=== PATIENT | female | born 1995 | race Caucasian/White ===

== ENCOUNTER 2022-03-07 06:12 | Day surgery (SDC) | payer MEDICAID, SELFPAY ==
--- NOTE | 2022-03-06 20:46 | W.PM.DSUDISC ---
Date of service: 03/07/22 Time of Service: 08:03 Discharge Plan Disposition Patient Disposition: Home Condition: Good Discharge Details Reason For Visit: Colonoscopy Attending Provider: Epi Hdz Primary Care Provider: Unknown,Unknown Home Meds and New Rx's Prescriptions: Continued hydrocortisone acetate 25 mg suppository 25 mg KS BID Discontinued bisacodyl [Dulcolax (bisacodyl)] 5 mg tablet,delayed release (DR/EC) 5 mg PO ONCE Qty: 4 0RF Rx Instructions: Take according to provider's instructions for colonoscopy prep. polyethylene glycol 3350 17 gram/dose powder 17 g PO ONCE Qty: 238 0RF Rx Instructions: To be taken as directed by prescriber's office for colonoscopy prep. Discharge Instructions Additional Instructions: 1. If tolerated, consume a soft, low fiber diet for 1-2 days. 2[address] Do not drive, drink alcohol, operate machinery, make critical decisions, or do activities that require coordination or balance for 24 hours. 3. Because air was put into your colon during the procedure, expelling air from your rectum (passing gas or farting) is normal. 4. You may not have a bowel movement for 1-3 days because of the colonoscopy prep. This is normal. 5. Go directly to the emergency room if you notice any of the following: Develop chills (warm to touch), or if you have a thermometer and your temperature is above 101 Difficulty breathing or difficultly swallowing Persistent vomiting Severe abdominal pain, other than gas cramps Severe chest pain Black, tarry stools Any bleeding ? exceeding one tablespoon 6. Call your physician if the site where your intravenous was started becomes red, swollen, painful, and warm to touch. 7. Your physician has reviewed your pre-procedure medications. Please continue to take those medications as previously ordered. You will be given specific information/education regarding any changes to your medications before leaving. 8. Hair-[id number] hemorrhoid creams and suppositories may be helpful for your discomfort. 9. You may notice a small rubber band associated with your bowel movement sometime during the next week or so. This is normal as the hemorrhoid is shed. Activity:: Activity as Tolerated Diet:: As Tolerated Discharge Orders Discharge Orders: Discharge Order (Routine); Ordered 03/06/22 Ordered By: Epi Hdz DS: Diagnosis Discharge Diagnosis (1) Hemorrhoids, internal, with bleeding: Status: Acute Asessment and Plan: Annatasia, we were able to complete your colonoscopy today. Your large intestine is normal. You have 1 internal hemorrhoid that I banded.
--- NOTE | 2022-03-06 20:47 | W.COLOREPORT ---
Date of service: 03/07/22 Time of Service: 07:50 Colonoscopy Report Date of procedure: 03/07/22 Pre-op diagnosis general: Hematochezia Post-op diagnosis procedure note: other (Internal hemorrhoid) Procedure: Colonoscopy with internal hemorrhoid banding Surgeon: Epi Hdz Anesthesia Type: General:No Airway Estimated blood loss (mL): 0 Pathology: none sent Complications: None Disposition: same day Indications: Ambika is a 27-year-old woman with intermittent hematochezia Prep: Miralax/Dulcolax Procedure Start Time: 07:33 Procedure End Time: 07:50 Retraction Time: 9 Findings: Internal hemorrhoid Procedure Description: After the induction of monitored anesthetic care, and with the patient in left lateral decubitus position, I began by performing an external anorectal exam.? Perineum and skin were normal, as was the anal verge.? There was no evidence of external hemorrhoids.? Next, I performed a digital rectal exam.? I did not appreciate any abnormal findings.? Next, I advanced a colonoscope into the rectal vault.? I performed retroflexion.? There is a grade 1 internal hemorrhoid.? Using insufflation, I then advanced the colonoscope beyond the rectal folds and into the sigmoid colon before advancing towards the cecum.? The quality of the prep was excellent.? The scope was noted to be in the cecum by identification of the ileocecal valve and appendiceal orifice.? I then began withdrawing the colonoscope using repeated irrigation as necessary for full evaluation of the colonic mucosa. ?Once the scope was withdrawn to the level of the rectum, great care was taken to examine portions of the rectal folds.? I then withdrew the colonoscope. Next, using a lit anoscope, I examined the hemorrhoid columns. There was 1 internal hemorrhoid in the right posterior position. I performed suction banding in the usual fashion. Finally, the patient was brought to the same-day surgery recovery unit as the anesthetic wore off. ?The findings and instructions were shared with the patient prior to discharge.
[2022-03-07 06:47] VITALS: BP 124/78; PULSE 86; RESP 16; TEMP 36.9; O2SAT 96
--- NOTE | 2022-03-07 06:56 | W.ANESPRE ---
General Info Date of Service Date Performed: 03/07/22 Height: 5 ft 6 in Weight: 66.8 kg Body Mass Index (BMI): 23.8 Surgical Procedure: Operation Date: 03/07/22 07:40 Proposed Procedure Side Surgeon p Colonoscopy Epi Hdz MD s Hemorrhoid Banding Epi Hdz MD Meds Allergies and Home Medications Allergies Allergy/AdvReac Type Severity Reaction Status Date / Time No Known Allergies Allergy Verified 03/07/22 06:46 Home Medication Medication Instructions Recorded hydrocortisone acetate 25 mg 25 mg CA BID 01/30/22 rectal suppository Current Visit Medications: Current Medications Generic Name Dose Route Start Last Admin Trade Name Freq PRN Reason Stop Dose Admin Hyoscyamine Sulfate 0.125 mg 03/06/22 20:49 Hyoscyamine 0.125 Mg Sl/Oral/Chew SL DIRECTED PRN Ringer's Solution 1,000 mls @ 80 mls/hr 03/07/22 06:00 IV 04/05/22 23:59 INFUSION ASHWIN Ringer's Solution 1,000 mls @ 80 mls/hr 03/07/22 06:00 IV 04/05/22 23:59 INFUSION ASHWIN IV Miscellaneous Supplies 1 each 03/07/22 06:00 Iv Access IV 04/05/22 23:59 DIRECTED ASHWIN IV Miscellaneous Supplies 1 each 03/07/22 06:00 Iv Access IV 04/05/22 23:59 DIRECTED ASHWIN Ondansetron HCl 4 mg 03/06/22 20:49 Ondansetron 4 Mg/2 Ml Vial IVP Q4H PRN PRN Nausea / Vomiting Sodium Chloride 0 ml 03/07/22 06:00 Normal Saline Flush 10 Ml Syr IV 04/05/22 23:59 PRN PRN Sodium Chloride 0 ml 03/07/22 06:00 Normal Saline 10 Ml Vial IJ 04/05/22 23:59 DIRECTED PRN Sodium Chloride 0 ml 03/07/22 06:00 Normal Saline Flush 10 Ml Syr IV 04/05/22 23:59 PRN PRN Sodium Chloride 0 ml 03/07/22 06:00 Normal Saline 10 Ml Vial IJ 04/05/22 23:59 DIRECTED PRN Sterile Water 0 ml 03/07/22 06:00 Water,Injection,Sterile 10 Ml Vial IJ 04/05/22 23:59 DIRECTED PRN Sterile Water 0 ml 03/07/22 06:00 Water,Injection,Sterile 10 Ml Vial IJ 04/05/22 23:59 DIRECTED PRN PFSH Active Problems Active Problems: Problem Status Onset Code Finger pain M79.646 Hemorrhoids, internal, with bleeding K64.8 External hemorrhoid, bleeding K64.4 Medical History Medical History Unspecified disorder of synovium and tendon, unspecified hand Medical History Comments:: pt reports runny nose at times, wood heat/going into cold, but no other symptoms. Pt reports occasional marijauna, monthly. Surgical History Surgical History [place] teeth extracted Tobacco Smoking/Tobacco Use Status: Former Tobacco Use Alcohol Alcohol Intake: current Alcohol intake frequency: a few times a month Substance Use Substance use: Occasionally Substance use type: marijuana Details: monthly Vital Signs and Lab Results Vital Signs Most Recent Vital Signs in EMR: Most Recent Vital Signs Temp Pulse Resp BP Pulse Ox 36.9 C 86 16 124/78 96 03/07/22 06:47 03/07/22 06:47 03/07/22 06:47 03/07/22 06:47 03/07/22 06:47 Point of Care Results Point of Care Results: POC- Test(urine) Negative 03/07/22 06:50 Lab Results Blood Type / Crossmatch: No Data to Display Complete Blood Count: No Data to Display Complete Metabolic Panel: No Data to Display Liver Function Panel: No Data to Display Coagulation Panel: No Data to Display Cardiac Panel: No Data to Display Arterial Blood Gas: No Data to Display Venous Blood Gas: No Data to Display Pancreas Panel: No Data to Display Thyroid Panel: No Data to Display Infectious Disease: No Data to Display Blood Cultures: No Data to Display Toxicology Panel: No Data to Display Panel: No Data to Display Anesthesia Assessment and Plan Anesthesia History Personal History: No History of Anesthesia Complications Family History: No Family History of Anesthesia Complications Exercise Tolerance Exercise Tolerance: Metabolic Equivalents>4 Pertinent Negatives Pertinent Negatives: No Symptoms of GERD Cardiac & Pulmonary Exam Cardiac Exam: Normal S1/S2 Heart Sounds Pulmonary Exam: Clear Bilateral Breath Sounds Implantable Cardiac Device Does patient have a Pacemaker or an ICD?: No Airway Exam Known Difficult Airway: No Mallampati Class: 2 Mouth Opening: Normal (> 3cm) Thyromental Distance: Greater than 3 cm Neck Range of Motion: Full ROM Neck Circumference: Normal Teeth Condition: Normal Dentition ASA Classification ASA Score: ASA 1 Emergency Case?: No NPO Status NPO Status: NPO Clears >2 hours, Solids >8 hours Status Status: Negative HCG Anesthesia Plan Resuscitation Status: Full Code Anesthesia Technique: General Anesthesia Airway Planned: Natural Airway Monitors Used: Standard Monitors
[2022-03-07 07:00] VITALS: BMI 23.8
[2022-03-07] MEDS: Lactated Ringers 1,000 ML 80 ML IV (07:10)
[2022-03-07 07:57] VITALS: BP 103/88; PULSE 79; RESP 16; TEMP 36.6; O2SAT 98
--- NOTE | 2022-03-07 08:17 | W.ANESPOSTOP ---
Postoperative Evaluation Date, Time and Location Date Performed: 03/07/22 Time Performed: 08:17 Patient Location: Day Surgery Unit Vital Signs Most Recent Imported Vital Signs: Most Recent Vital Signs Temp Pulse Resp BP Pulse Ox 36.6 C 79 16 103/88 98 03/07/22 07:57 03/07/22 07:57 03/07/22 07:57 03/07/22 07:57 03/07/22 07:57 Pain Score Most Recent Pain Score: Most Recent Pain Score Pain Level 3 03/07/22 07:57 Assessment Mental Status: Awake (Alert & Oriented to Patient Baseline) Airway and Respiratory Function: Patent airway with normal (patient baseline) respiratory exam Cardiovascular Function: Hemodynamically Stable Hydration Status: Adequately Hydrated Nausea & Vomiting: No Nausea or Vomiting Pain: Pt. Denies Any Pain Peripheral Nerve Block: Patient did not receive a nerve block
[2022-03-07 08:25] VITALS: BP 141/90; PULSE 84; RESP 18; TEMP 36.6; O2SAT 99
== END 2022-03-07 08:35 | disposition home or self-care (01) ==
PROVIDERS: Visit Provider Surgery
PROC: 0DJD8ZZ Inspection of Lower Intestinal Tract, Via Natural or Artificial Opening Endoscopic (ICD-10-PCS; CPT 45378; principal; 2022-03-07 07:30)
PROC: (CPT 45398; 2022-03-07 07:30)
DX: K64.8 Other hemorrhoids (principal); K92.1 Melena
CPT/HCPCS: 45398; 81025; J2704

== ENCOUNTER 2022-05-28 15:27 | Outpatient (REF) | payer MEDICAID, SELFPAY ==
[2022-05-30 15:28] LABS: Chlamydia Result Negative (Negative); GC Result Negative (Negative)
== END 2022-05-28 15:28 | disposition home or self-care (01) ==
LOC: LBN 15:27
PROVIDERS: Visit Provider Nurse Practitioner Family
DX: Z11.3 Encounter for screening for infections with a predominantly sexual mode of transmission (principal)
CPT/HCPCS: 87491; 87591

== ENCOUNTER 2022-05-30 15:22 | Outpatient (REF) | payer MEDICAID, SELFPAY ==
[2022-05-30 15:32] LABS: Bilirubin Negative (Negative); Blood Negative (Negative); Clarity Clear (Clear); Glucose Negative (Negative); Ketones Negative (Negative); Leukocyte Esterase Negative (Negative); Nitrite Negative (Negative); Specific Gravity 1.025 (1.005-1.025); Urobilinogen 0.2 mg/dL (Up to 0.2)
== END 2022-05-30 15:23 | disposition home or self-care (01) ==
LOC: NCHCN 15:22
PROVIDERS: Visit Provider Nurse Practitioner Family
DX: R10.2 Pelvic and perineal pain (principal)
CPT/HCPCS: 81003

== ENCOUNTER 2022-07-09 03:02 | Outpatient (CLI) | payer MEDICAID, SELFPAY ==
--- NOTE | 2022-07-09 06:51 | DI.US_ITS ---
Exam(s) US OB 1ST TRIMESTER EXAM: US OB 1ST TRIMESTER CLINICAL HISTORY: Anatomy,H/O PID,Z87.42modified per protocol. TECHNIQUE: First trimester obstetrical ultrasound was performed. COMPARISON: No exams were available for comparison FINDINGS: There is an intrauterine gestational sac which contains a yolk sac and viable pole which exhibi ts heart rate of 157 bpm. [place]-rump length measurement is 16 mm, corresponding to 8 weeks gestational age. There is no evidence of subchorionic hemorrhage. Maternal ovaries: Right ovary measures 2.4 x 2.0 x 2.6 cm and appears unremarkable. Left ovary was not identified on this study. Small amount of fluid noted in the cul-de-sac. IMPRESSION:: Single viable intrauterine gestation which is approximately 8 weeks gestational age by crown rump length measurement, implying SIOBHAN of 02/18/2023. There is no evidence of obvious subchorionic hemorrhage. There is small amount free fluid evident in the cul-de-sac. DATA REPOSITORY:
== END 2022-07-09 03:22 ==
LOC: DI 03:03
PROVIDERS: Visit Provider Obstetrics & Gynecology
DX: Z87.42 Personal history of other diseases of the female genital tract (principal); Z34.91 Encounter for supervision of normal pregnancy, unspecified, first trimester
CPT/HCPCS: 76801

== ENCOUNTER 2022-08-07 02:35 | Outpatient (CLI) | payer MEDICAID, SELFPAY ==
[2022-08-07 16:23] LABS: Panorama Kit Sent via Fed Ex
[2022-08-07 16:29] LABS: Abs Immature Grans 0.04 10^3/uL (0.0-0.06); Absolute Basophil Count 0.04 10^3/uL (0.0-0.2); Absolute Eosinophil Count 0.18 10^3/uL (0.0-0.7); Absolute Lymphocyte Count 1.85 10^3/uL (1.2-3.4); Absolute Monocyte Count 0.67 10^3/uL (0.1-0.8); Absolute Neutrophil Count 5.66 10^3/uL (1.2-6.7); Basophils % 0.5; Eosinophils % 2.1; HCT 34.7 % (36.0-46.0); HGB 11.6 g/dL (11.2-15.7); Immature Grans % 0.5; Lymphocytes % 21.9; MCHC 33.4 % (32.0-36.0); MCV 90 fL (80-95); MPV 9.9 fL (8.0-11.0); Monocytes % 7.9; Neutrophils % 67.1; Platelet Count 234 10^3/uL (130-400); RBC 3.87 10^6/uL (3.93-5.22); RDW 12.9 % (11.7-14.6); RDW-SD 42.5 fL; WBC 8.44 10^3/uL (4.4-10.8)
[2022-08-09 10:55] LABS: Rubella IgG Ab (UVM) Positive (See Note)
[2022-08-09 11:14] LABS: Hepatitis B Surface Ag Negative (Negative)
[2022-08-09 11:39] LABS: Hepatitis C Ab w Rflx HCV PCR Negative (Negative)
[2022-08-09 11:47] LABS: HIV-1/2 Ag & Ab Screen Negative (Negative)
[2022-08-09 12:06] LABS: Varicella IgG Antibody Equivocal (See Note)
[2022-08-11 14:41] LABS: Syphilis IgG w/Reflex Nonreactive (Nonreactive)
[2022-08-19 22:27] LABS: Result Summary NEGATIVE; Specimen WB Whole Blood
== END 2022-08-07 02:36 | disposition home or self-care (01) ==
LOC: LBO 02:35
PROVIDERS: Advanced Practice Midwife; Visit Provider Advanced Practice Midwife
DX: Z34.91 Encounter for supervision of normal pregnancy, unspecified, first trimester (principal); Z3A.12 12 weeks gestation of pregnancy
CPT/HCPCS: 36415; 81220; 81222; 86787; 86803; 86850; 86900; 86901; 87340; 87389; 85025; 86762; 86780

== ENCOUNTER 2022-08-07 16:56 | Outpatient (REF) | payer MEDICAID, SELFPAY ==
--- NOTE | 2022-08-07 15:30 | PAPFT_PTH ---
PATIENT: Ambika Day LOC: [facility] U#:[id number] AGE/SX: 27/F ROOM: RE08/07/[address]: Farideh Padron : 1995 BED: DIS: 08/07/2022 SPEC #: [id number] RECD: 08/07/22 18:09 STATUS: ROLAND REQ #: [id number] KENRICK: 08/07/22 15:[address]: Farideh Padron DEPT: [facility] Cytology RECD BY: Madeleine Urena Tissues: 1 - CX/ENDOCX FOR PAP SMEARS Procedures: PAP THIN PREP/UVM Screening Comments: [id number] (CHLAMYDIA/GC)
[2022-08-07 19:27] LABS: *AMPHETAMINES SCREEN URINE Negative (Negative); *BARBITURATES SCREEN URINE Negative (Negative); *BENZODIAZEPINES SCREEN URINE Negative (Negative); Cannabinoids THC Positive (Negative); Cocaine Screen,Urine Negative (Negative); METHADONE URINE SCREEN Negative (Negative); OPIATES URINE SCREEN Negative (Negative)
[2022-08-07 19:33] LABS: Tricyclic Antidepressants Negative (Negative)
[2022-08-08 14:28] LABS: Chlamydia Result Negative (Negative); GC Result Negative (Negative)
[2022-08-16 14:21] LABS: Buprenorphine Negative ng/mL (Cutoff: 5.0); Norbuprenorphine Negative ng/mL (Cutoff: 2.5)
== END 2022-08-07 16:57 | disposition home or self-care (01) ==
LOC: LBN 16:56
PROVIDERS: Visit Provider Advanced Practice Midwife
DX: Z11.51 Encounter for screening for human papillomavirus (HPV) (principal)
CPT/HCPCS: 80307; 80348; 87491; 87591; 88142; 87086; 87480; 87510; 87660

== ENCOUNTER 2022-08-31 08:01 | Emergency (ER) | payer MEDICAID, SELFPAY ==
[2022-08-31 08:05] VITALS: BP 122/68; PULSE 89; RESP 16; TEMP 37; O2SAT 100
[2022-08-31 08:10] VITALS: RESP 18
[2022-08-31 09:22] VITALS: BP 117/62; PULSE 74; RESP 18; TEMP 36.7; O2SAT 100
--- NOTE | 2022-08-31 09:33 | ED.GENADUL_ITS ---
Discharge Plan Disposition Patient Disposition: Home Condition: Good Discharge Details Clinical Impression: URI (upper respiratory infection), Sinus pain Primary Care Provider: Emily Zazueta ED Provider: Alina Covarrubias Home Meds and New Rx's Prescriptions: New ondansetron 4 mg tablet,disintegrating 4 mg PO Q8H PRN (Reason: nausea and vomiting) Qty: 10 0RF Continued Plus 29 mg iron- 1 mg tablet 1 tab PO DAILY Qty: 90 1RF Discharge Instructions Instructions: Upper Respiratory Infection (ED) Additional Instructions: Your history and exam is concerning for upper respiratory infection, likely viral. Please continue to encourage hydration. You may use tylenol as needed for discomfort or fevers. You have been prescribed zofran to help with nausea and allow you to take your medications and hydrate. Please follow up with your primary care in one week for reevaluation. If you develop difficulty breathing, increased pain, inability to stay hydrated or other new/worsening symptoms, please seek care urgently once again. Referrals: Emily Zazueta MD [Primary Care Provider] - Discharge Data Discharge Date/Time-TO BE ENTERED AT DEPARTURE: 08/31/22 10:43 Medical Decision Making Patient is a 27-year-old female presenting today with chief complaint of congestion, sinus discomfort, sinus headache, sore throat, cough, fevers, nausea, vomiting. She is 15 weeks gestation. States that symptoms began approximately 4 days ago. She states that she is not able to keep down acetaminophen. Denies feeling short of breath or having chest pain. No known sick contacts. On exam, patient appears very anxious but nontoxic. She has moist mucous membranes. She is hemodynamically stable with 100% O2, patient is not tachycardic or hypotensive. Her lungs are clear in all [place]. HEENT exam shows some tenderness over the maxillary sinuses bilaterally, cobblestoning in the posterior oropharynx, normal TMs, no lymphadenopathy. History exam is most consistent with a viral illness. I did discuss holding off on antibiotics as I do not feel that they are warranted at this time. She does sound like she is been having some difficulty with nausea and is having difficulty with staying hydrated although clinically, she does appear well- hydrated at this time. Will give Zofran as well as some acetaminophen as she has not been able to have this yet today. Patient able to keep down APAP after zofran. She is hydrating. Advised on supportive care. dicussed return precautions. Advised f/u in one week for PCP. All of her qeustions and concerns were addressed, she is in agreement with this plan. HPI General Date/Time Provider Initiated Documentation: 08/31/22 08:02 . Limitations to Documentation: no limitations . Information obtained by: patient and RN notes reviewed . History of Present Illness 27 year old F presents to the emergency department with the chief complaint of sinus pain, congestion, cough, fever, sore throat, described as moderate, Quality is described as aching, and is localized to the head and face. Patient started experiencing this day(s) (4) and it has been constant. No relieving factors improve symptom(s), No exacerbating factors reported . Patient notes cough, fever/chills, headaches (sinus pain), loss of appetite, malaise and nausea/vomiting; denies chest pain, diaphoresis, rash and shortness of breath. Patient did receive the following treatments prior to arrival, none Related Data Home Medications Medication Instructions Recorded Confirmed vitamins with calcium 1 tab PO DAILY #90 tabs 06/21/22 08/07/22 no.72-iron 29 mg-folic acid 1 mg tablet ( Plus) ondansetron 4 mg disintegrating 4 mg PO Q8H PRN nausea and 08/31/22 tablet vomiting #10 tabs Previous Rx's Medication Instructions Recorded vitamins with calcium 1 tab PO DAILY #90 tabs 06/21/22 no.72-iron 29 mg-folic acid 1 mg tablet ( Plus) ondansetron 4 mg disintegrating 4 mg PO Q8H PRN nausea and 08/31/22 tablet vomiting #10 tabs Allergies Allergy/AdvReac Type Severity Reaction Status Date / Time No Known Allergies Allergy Verified 08/31/22 08:08 General Stated Complaint: GenMedical DON: 3 Review of Systems Constitutional Constitutional: Reports as per HPI Eyes Eyes: Reports as per HPI, Denies eye discharge and Denies irritation ENT Ears, Nose, Mouth, and Throat: Reports as per HPI Cardiovascular Cardiovascular: Reports as per HPI, Denies chest pain and Denies dyspnea Respiratory Respiratory: Reports as per HPI and Denies dyspnea Gastrointestinal Gastrointestinal: Reports as per HPI, Denies abdominal pain and Denies change in bowel habits Integumentary/Breasts Skin/Breast: Reports as per HPI and Denies rash Neurologic Neurologic: Reports as per HPI PFSH All Active Problems (Updated 08/31/22 @ 10:21 by ANNIE Chandra) URI (upper respiratory infection) (Acute) Sinus pain (Acute) Susceptible to varicella (non-immune), currently (Acute) Marijuana use during (Acute) LGSIL of cervix of undetermined significance (Acute) (Acute) Hemorrhoids, internal, with bleeding (Acute) External hemorrhoid, bleeding (Acute) Medical History (Updated 08/31/22 @ 10:21 by ANNIE Chandra) Finger pain History of PID Unspecified disorder of synovium and tendon, unspecified hand Surgical History [place] teeth extracted Family History Maternal Grandfather Diabetes Father Diabetes Arthritis Daughter Leukemia Paternal Grandfather Suicide Maternal Grandfather Vascular disease Social History (Updated 08/07/22 @ 15:02 by Farideh Padron CNM) Smoking/Tobacco Use Status: Former Tobacco Use Quit Date: 02/10/18 Smoking risk assessment performed?: Yes Alcohol Intake: current Alcohol Intake frequency: a few times a month Drug use: Never Substance use type: does not use Details: monthly Household members: significant other and children Housing: house Number of Children: 2 Do you feel safe at home: Yes Do you feel safe in your relationship?: Yes History History 5 Para 2 Hx # Term Pregnancies 2 Multiple births Hx # Pregnancies Ectopic pregnancies AB induced 2 Hx Number of Living Children 2 AB spontaneous Past Pregnancies Del. 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 Pitocin augmentation Delivery Date: 01/07/16 Last Updated by: Farideh Padron CNM Pitocin augmentation, meconium Exam Const General: cooperative, healthy appearing, comfortable, no acute distress, well developed and well groomed Nutritional Appearance: average body habitus and well nourished Orientation: alert and awake [facility] Head: normal to inspection, normocephalic and atraumatic Ears: hearing grossly normal bilaterally, external ears normal and TM's normal bilaterally General nose exam: external nose normal and nares normal Face and sinus: normal facial exam, face symmetric and sinus tenderness maxill fernando (bilaterally) Mouth: oral mucosae normal, lip normal, tongue normal, oropharynx normal and moist mucous membranes Teeth and gingiva: dentition normal Throat: tonsils normal, uvula midline and posterior oropharynx abnormal cobblestoning Eyes General: appearance normal, both eyes and all related structures Neck Neck: normal visual inspection, full ROM, no lymphadenopathy and no meningeal signs Resp Effort & Inspection: normal respiratory effort, able to speak in complete sentences and no respiratory distress Auscultation: clear to auscultation bilaterally, no rales, no rhonchi and no wheezes Cardio Rate: regular rate Rhythm: regular rhythm Heart Sounds: S1 normal and S2 normal Skin General skin exam: no rashes or lesions noted Neuro General: patient alert and patient awake Cognition: normal cognition Speech: speech normal Gait: normal gait Course Vital Signs Vital signs: Vital Signs Temperature 37.0 C 08/31/22 08:05 Pulse 89 08/31/22 08:05 Respiratory Rate 16 08/31/22 08:05 Blood Pressure 122/68 08/31/22 08:05 Pulse Oximetry 100 08/31/22 08:05 Temperature 36.7 C 08/31/22 09:22 Temperature Source Oral 08/31/22 09:22 Pulse 74 08/31/22 09:22 Respiratory Rate 18 08/31/22 09:22 Respiratory Effort Normal, Non-Labored 08/31/22 08:10 Respiratory Depth Normal 08/31/22 08:10 Respiratory Pattern Normal 08/31/22 08:10 Blood Pressure 117/62 08/31/22 09:22 Blood Pressure Position Sitting 08/31/22 08:05 Pulse Oximetry 100 08/31/22 09:22 Oxygen Delivery Method Room Air 08/31/22 09:22 Oxygen Flow Rate 0 08/31/22 09:22
[2022-08-31] MEDS: Ondansetron O.D.T. 4 MG TABEF PO (09:34)
[2022-08-31] MEDS: Acetaminophen 325 MG TAB 650 MG PO (09:34)
[2022-08-31 10:41] VITALS: BP 119/77; PULSE 67; RESP 18; O2SAT 98
== END 2022-08-31 10:43 | disposition home or self-care (01) ==
PROVIDERS: Emergency Provider Physician Assistant; PCP Family Medicine
DX: O26.892 Other specified pregnancy related conditions, second trimester (principal); R05.9 Cough, unspecified; O21.8 Other vomiting complicating pregnancy; O99.512 Diseases of the respiratory system complicating pregnancy, second trimester; Z20.822 Contact with and (suspected) exposure to COVID-19; Z87.891 Personal history of nicotine dependence; Z3A.15 15 weeks gestation of pregnancy
CPT/HCPCS: 99283; 99282

== ENCOUNTER → 2022-09-27 00:05 | Outpatient (CLI) | payer MEDICAID, SELFPAY ==
--- NOTE | 2022-09-27 06:45 | DI.US_ITS ---
Exam(s) US OB 2-3 TRIMESTER EXAM: US OB 2-3 TRIMESTER CLINICAL HISTORY: ,Z34.90. TECHNIQUE: Transabdominal obstetrical ultrasound was performed. COMPARISON: US US OB 1ST TRIMESTER from 07/09/2022 FINDINGS: There is a single viable intrauterine gestation with cardiac activity identified-145 bpm. Amniotic fluid: There is a normal amount of amniotic fluid. Placental location: The placenta is anterior grade 1,with no evidence of placenta previa.Distance fro m tip of placenta to the internal cervical os is 4 cm. Distance from the margin of the placenta to t he cord insertion is 4.4 cm. ANATOMY: A 3 vessel umbilical cord is seen. A four-chamber cardiac view was obtained. Right and left ventricular outflow tracts were imaged. There are no obvious abnormalities of the spinal column evident. There is no obvious abnormal ity of the anterior abdominal wall. stomach and urinary bladder are identified and there is no evidence of hydronephrosis. No abnormalities of the upper lip region are identified. No evidence of choroid plexus cysts i n the brain. Dating parameters place this at approximately 19 weeks and 4 days gestational age. BPD measures 19 weeks and 5 days HC measures 19 weeks and 5 days AC measures 19 weeks and 6 days FL measures 19 weeks and 1 day. Estimated weight is 301 gm-0 pounds 11 ounces Fetus is at the 30th percentile on the Hadlock scale. IMPRESSION:: Single viable intrauterine gestation which is approximately 19 weeks and 4 days gestati onal age, implying an SIOBHAN of February 17, 2023. There are no obvious anomalies evident on today's study. The placenta is anterior with no evidence of placenta previa. There is a normal amount of amniotic fluid. DATA REPOSITORY:
== END ==
PROVIDERS: PCP Nurse Practitioner Family; Visit Provider Advanced Practice Midwife
DX: Z34.92 Encounter for supervision of normal pregnancy, unspecified, second trimester (principal)
CPT/HCPCS: 76805

== ENCOUNTER 2022-10-22 07:18 | Emergency (ER) | payer MEDICAID, SELFPAY ==
[2022-10-22 07:20] VITALS: BP 111/65; PULSE 80; RESP 15; TEMP 36.5; O2SAT 100
--- NOTE | 2022-10-22 07:40 | W.ED.GENAD ---
Discharge Plan Disposition Patient Disposition: Home Discharge Details Clinical Impression: Laceration of left foot, Primary Care Provider: Aury Carrillo ED Provider: Coco Varela Home Meds and New Rx's Prescriptions: New cephalexin 500 mg tablet 500 mg PO BID Qty: 10 0RF No Action Plus Vitamin-Mineral 27 mg iron- 1 mg tablet 1 tab PO DAILY Qty: 30 5RF Discharge Instructions Instructions: (ED), Crutch Instructions (ED), Laceration (ED) Additional Instructions: 1. You should be contacted by the podiatry office for a follow-up appointment this week. Return here if you develop any increasing pain, redness, fevers, chills, red streaking or any concerns. You can wash the wound with mild soap and water or diluted hydrogen peroxide in a one-to-one solution. 2. Start cephalexin 500 mg every 12 hours for 5 days. We recommend he take a probiotic while on antibiotics. 3. Use the crutches as needed for ambulation. 4. Take Tylenol as needed for pain Discharge Data Discharge Physician: Coco Varela Medical Decision Making This is a 23 and 2-day week female who presents with what she believes is a foreign body of the left foot. After exploration of the wound no foreign body was identified. My plan is to obtain an ultrasound to look for foreign body since she is . The area is slightly erythematous and tender although there is no lymphangitis or inguinal adenopathy. Her tetanus is not up-to-date and we will update her tetanus and give her Keflex. If her ultrasound is negative we will discharge her home with outpatient follow-up with podiatry. We will leave the wound open in case there is partially retained foreign body. I have advised her to take acetaminophen for pain and a probiotic while on cephalexin Differential Diagnosis Differential Diagnosis: Foreign body of the left foot versus puncture wound of the left foot. Medical Records Medical records reviewed: Yes I reviewed the patient's medical records. Imaging Data Radiologic Study: Imaging: Ultrasound (Left foot) Radiologist's impression: No foreign body HPI General Date/Time Provider Initiated Documentation: 10/22/22 07:19. Limitations to Documentation: no limitations. Information obtained by: patient, RN/MD, RN notes reviewed and old records reviewed. History of Present Illness with intensity rated at 2. Quality is described as aching and dull, and is localized to the left and lower extremity (Foot). Patient did receive the following treatments prior to arrival, none HPI Narrative: Patient is a -0-2-2 who is 23 weeks and 2 days by dates whose last tetanus was in 2006. She presents today with pain in the left foot after she was walking barefoot on a barbara and felt a splinter into her foot. She could see an entrance point and almost an exit point. She attempted to remove it for 2 hours at home using alcohol and a razor blade but was unable to remove it and comes in now with pain which is constant and 2 out of 10 in severity at rest. Is described as a soreness. It is aggravated by standing. She did see some fluid that did not appear purulent coming from the distal aspect of the wound. She denies any numbness tingling or loss of function. She does tell me she has been limping. She denies any abdominal pain. She can feel the baby moving. She denies any vaginal bleeding. She denies any allergies. Her previous pregnancies were uncomplicated. She denies any numbness tingling or loss of function. She denies any previous similar or serious injuries to that foot. She does not take any medications for the pain Related Data Home Medications Medication Instructions Recorded Confirmed vitamin no.180-ferrous 1 tab PO DAILY #30 tabs 09/27/22 10/22/22 fumarate 27 mg-folic acid 1 mg tablet ( Plus Vitamin-Mineral) cephalexin 500 mg tablet 500 mg PO BID #10 tabs 10/22/22 Previous Rx's Medication Instructions Recorded vitamin no.180-ferrous 1 tab PO DAILY #30 tabs 09/27/22 fumarate 27 mg-folic acid 1 mg tablet ( Plus Vitamin-Mineral) cephalexin 500 mg tablet 500 mg PO BID #10 tabs 10/22/22 Allergies Allergy/AdvReac Type Severity Reaction Status Date / Time No Known Allergies Allergy Verified 10/22/22 07:28 General Stated Complaint: ForeignBody DON: 4 Review of Systems Narrative: see hpi Musculoskeletal Musculoskeletal: Reports tingling Neurologic Neurologic: Reports as per HPI, Reports sensory deficit, Reports tingling and Reports paresthesias Allergic/Immunologic Comments: No history of immune compromise PFSH All Active Problems (Updated 10/22/22 @ 10:09 by Coco Varela MD) Laceration of left foot (Acute) (Acute) Susceptible to varicella (non-immune), currently (Acute) Marijuana use during (Acute) LGSIL of cervix of undetermined significance (Acute) (Acute) Hemorrhoids, internal, with bleeding (Acute) External hemorrhoid, bleeding (Acute) Medical History Finger pain History of PID Unspecified disorder of synovium and tendon, unspecified hand Surgical History [place] teeth extracted Family History Maternal Grandfather Diabetes Father Diabetes Arthritis Daughter Leukemia Paternal Grandfather Suicide Maternal Grandfather Vascular disease Social History Smoking/Tobacco Use Status: Former Tobacco Use Quit Date: 02/10/18 Smoking risk assessment performed?: Yes Alcohol Intake: current Alcohol Intake frequency: a few times a month Drug use: Never Substance use type: does not use Details: monthly Household members: significant other and children Housing: house Number of Children: 2 Do you feel safe at home: Yes Do you feel safe in your relationship?: Yes History History 5 Para 2 Hx # Term Pregnancies 2 Multiple births 0 Hx # Pregnancies 0 Ectopic pregnancies 0 AB induced 2 Hx Number of Living Children 2 AB spontaneous 0 Past Pregnancies Del. 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 Pitocin augmentation Delivery Date: 01/07/16 Last Updated by: Farideh Padron CNM Pitocin augmentation, meconium Exam Narrative Exam Narrative: Patient is a well-developed well-nourished female alert and oriented in no acute distress. Vital signs are within normal limits. Const General: cooperative, healthy appearing, comfortable, no acute distress, well developed, well groomed and well hydrated Nutritional Appearance: average body habitus and well nourished Orientation: alert, awake and oriented x3 HENMT Head: normal to inspection, normocephalic and atraumatic Ears: hearing grossly normal bilaterally and external ears normal General nose exam: external nose normal, nares normal and no nasal discharge Face and sinus: normal facial exam, sinuses nontender and face symmetric Mouth: oral mucosae normal, lip normal, tongue normal, oropharynx normal, moist mucous membranes and other (Normal phonation. The patient is handling secretions.) Throat: posterior oropharynx normal and uvula midline Eyes General: appearance normal, both eyes and all related structures Eyelids: eyelids normal Conjunctivae: conjunctivae normal Sclera: sclerae normal Cornea: corneas normal Pupils: PERRL EOM: EOM intact bilaterally and No nystagmus Neck Neck: normal visual inspection, full ROM, no lymphadenopathy, no meningeal signs, trachea midline and supple Lymphatic: no lymphadenopathy noted Chest Chest: normal inspection of the chest Resp Effort & Inspection: normal respiratory effort, able to speak in complete sentences, no audible wheezes, no nasal flaring, no respiratory distress, no retractions, no stridor, not tachypneic, no tracheal deviation, no use of accessory muscles, No prolonged expiratory phase and other (Normal inspiratory to expiratory ratio.) Auscultation: clear to auscultation bilaterally, no rales, no rhonchi, no wheezes and no rubs Tactile Fremitus: tactile fremitus absent Cardio Jugular venous pressure: no JVD Palpation: normal PMI Rate: regular rate Rhythm: regular rhythm Heart Sounds: S1 normal, S2 normal, no gallops, no murmurs and no rubs GI Inspection: other (The patient does appear to be gravid in her second trimester) Palpation: soft, no hepatosplenomegaly, no guarding and nontender Percussion: normal to percussion Auscultation: normal bowel sounds General: No CVA tenderness Back/Spine/Pelvis Back: no CVA tenderness and No back tenderness Cervical Spine: normal cervical lordosis, cervical ROM normal, No cervical muscular tenderness, No pain with cervical ROM, No cervical spinal tenderness and No step off deformity Thoracic/Lumbar Spine: thoracic and lumbar spine normal to inspection, No thoracic spinal tenderness and No lumbar spinal tenderness Pelvis: no pain with anterior-posterior compression and no pain with lateral compression Skin General skin exam: turgor normal, no petechiae, no purpura and other (Skin is normal for ethnicity.) Lesions: no lesions Rashes: no rashes Other: Her skin is normal for ethnicity please see below for description of her laceration Neuro General: patient alert, patient awake, patient oriented x3, moves all extremities, no meningeal signs, no focal motor deficits and CN's II-XI intact bilaterally Cranial Nerves: CN's II-XI intact bilaterally, PERRL, accommodation normal, EOM intact bilaterally, no nystagmus, facial strength normal, tongue midline, hearing normal and no nystagmus Cognition: normal cognition Speech: speech normal Gait: normal gait Motor: muscle tone normal throughout and strength 5/5 throughout Sensory Exam: no sensory deficits noted Extrem Other: She is moving all of her extremities normally the left foot on the sole reveals an entrance wound and a small puncture on the lateral aspect of the left foot. The entrance wound goes from just below the fifth toe proximally to 5 cm to the exit wound Psych Appearance: grossly normal Affect: normal affect Attitude: cooperative Thought Process: normal Thought Content: normal Insight: insight good Judgment: judgment good Other: The patient appears to have capacity make medical decisions. Course Vital Signs Vital signs: Vital Signs Temperature 36.5 C 10/22/22 07:20 Pulse 80 10/22/22 07:20 Respiratory Rate 15 10/22/22 07:20 Blood Pressure 111/65 10/22/22 07:20 Pulse Oximetry 100 10/22/22 07:20 Temperature 36.5 C 10/22/22 07:20 Temperature Source Temporal Artery Scan 10/22/22 07:20 Pulse 80 10/22/22 07:20 Respiratory Rate 15 10/22/22 07:20 Respiratory Effort Normal 10/22/22 07:23 Blood Pressure 111/65 10/22/22 07:20 Blood Pressure Position Sitting 10/22/22 07:20 Pulse Oximetry 100 10/22/22 07:20 Oxygen Delivery Method Room Air 10/22/22 07:20 Oxygen Flow Rate 0 10/22/22 07:20 Pain Level 2 10/22/22 07:27 Procedures Other Description: After verbal consent, the wound was prepped and draped in sterile fashion. The wound was anesthetized with plain 1% lidocaine and 0.5% plain bupivacaine. 5 mL was placed along the length of the wound it was reapplied during the procedure with good resulting local anesthesia. The wound was opened from the point of entrance to the exit it was explored and irrigated. No foreign body was identified. A dry sterile dressing was placed and the patient was sent to ultrasound. She tolerated the procedure well
[2022-10-22] MEDS: Bupivacaine 0.5% Pres-Free 30 ML VIAL (08:06)
--- NOTE | 2022-10-22 08:30 | DI.US_ITS ---
Exam(s) US SOFT TISSUE EXTREMITY EXAM: US SOFT TISSUE EXTREMITY CLINICAL HISTORY: Rule out wooden FB. TECHNIQUE: Ultrasound was performed using standard protocol. COMPARISON: No exams were available for comparison FINDINGS: Sonographic assessment utilizing grayscale and color Doppler imaging was performed and targeted to th e area of clinical concern. No foreign body is identified. No fluid collection or abscess. IMPRESSION: No evidence of foreign body. DATA REPOSITORY:
[2022-10-22] MEDS: Cephalexin 500 MG CAP PO (09:01)
--- NOTE | 2022-10-22 10:20 | NUR.NOTE ---
Pt referred to Podiatry for wound recheck on Left Foot- Faxed request at 1023. Nursing Note:
[2022-10-22 10:25] VITALS: BP 112/60; PULSE 69; TEMP 36.7; O2SAT 99
== END 2022-10-22 10:34 | disposition home or self-care (01) ==
PROVIDERS: Emergency Provider Emergency Medicine Emergency Medical Services; PCP Nurse Practitioner Family
DX: O9A.22 Injury, poisoning and certain other consequences of external causes complicating childbirth (principal); S91.312A Laceration without foreign body, left foot, initial encounter; Z3A.23 23 weeks gestation of pregnancy; Z23 Encounter for immunization; W22.8XXA Striking against or struck by other objects, initial encounter; Y92.89 Other specified places as the place of occurrence of the external cause; Y93.01 Activity, walking, marching and hiking; Y99.9 Unspecified external cause status
CPT/HCPCS: 12002; 76881; 90472; 99284

== ENCOUNTER 2022-11-22 04:31 | Outpatient (CLI) | payer MEDICAID, SELFPAY ==
[2022-11-22 10:19] LABS: HCT 33.3 % (36.0-46.0); HGB 11.3 g/dL (11.2-15.7); MCH 30.1 pg (27.0-33.0); MCHC 33.9 % (32.0-36.0); MCV 89 fL (80-95); MPV 9.2 fL (8.0-11.0); Platelet Count 247 10^3/uL (130-400); RBC 3.76 10^6/uL (3.93-5.22); RDW 12.8 % (11.7-14.6); RDW-SD 41.4 fL
[2022-11-22 10:40] LABS: Glucose,1 Hr (Glucola) 113 mg/dL (80-140)
== END 2022-11-22 04:32 | disposition home or self-care (01) ==
LOC: LBO 04:31
PROVIDERS: PCP Nurse Practitioner Family; Visit Provider Advanced Practice Midwife
DX: Z34.93 Encounter for supervision of normal pregnancy, unspecified, third trimester (principal)
CPT/HCPCS: 36415; 82950; 85027

== ENCOUNTER 2022-12-06 09:16 | Outpatient (REF) | payer MEDICAID, SELFPAY ==
[2022-12-06 11:13] LABS: *AMPHETAMINES SCREEN URINE Negative (Negative); *BARBITURATES SCREEN URINE Negative (Negative); *BENZODIAZEPINES SCREEN URINE Negative (Negative); Cannabinoids THC Positive (Negative); Cocaine Screen,Urine Negative (Negative); METHADONE URINE SCREEN Negative (Negative); OPIATES URINE SCREEN Negative (Negative)
[2022-12-06 11:15] LABS: Tricyclic Antidepressants Negative (Negative)
== END 2022-12-06 09:17 | disposition home or self-care (01) ==
LOC: LBN 09:16
PROVIDERS: PCP Nurse Practitioner Family; Visit Provider Advanced Practice Midwife
DX: F12.90 Cannabis use, unspecified, uncomplicated (principal); O99.323 Drug use complicating pregnancy, third trimester
CPT/HCPCS: 80307

== ENCOUNTER 2023-01-24 08:58 | Outpatient (REF) | payer MEDICAID, SELFPAY ==
[2023-01-24 11:12] LABS: *AMPHETAMINES SCREEN URINE Negative (Negative); *BARBITURATES SCREEN URINE Negative (Negative); *BENZODIAZEPINES SCREEN URINE Negative (Negative); Cannabinoids THC Positive (Negative); Cocaine Screen,Urine Negative (Negative); METHADONE URINE SCREEN Negative (Negative); OPIATES URINE SCREEN Negative (Negative)
[2023-01-24 11:13] LABS: Tricyclic Antidepressants Negative (Negative)
[2023-01-29 09:06] LABS: Buprenorphine Negative ng/mL (Cutoff: 5.0); Norbuprenorphine Negative ng/mL (Cutoff: 2.5)
== END 2023-01-24 08:59 | disposition home or self-care (01) ==
LOC: LBN 08:58
PROVIDERS: PCP Nurse Practitioner Family; Visit Provider Advanced Practice Midwife
DX: Z34.93 Encounter for supervision of normal pregnancy, unspecified, third trimester (principal)
CPT/HCPCS: 80307; 80348; 87081; 87480; 87510; 87660

== ENCOUNTER 2023-02-19 07:45 | Inpatient (IN) | payer MEDICAID, SELFPAY ==
[2023-02-19] VITALS (84 sets, daily range): BP systolic 111–139; BP diastolic 56–87; PULSE 0–158; RESP 16–20; TEMP 36.5–36.8; O2SAT 91–100; BMI 28.0
--- NOTE | 2023-02-19 07:47 | HPE_ITS ---
Date of service: 02/19/23 Time of Service: 07:47 Assessment and Plan Assessment and plan (1) Uterine contractions: Status: Acute Assessment and plan: 1. Dunia presents in early labor with regular painful contractions. 40w4d prefers to remain and be admitted. 2. Considering epidural in labor and IV saline lock will be placed 3. Type and screen and CBC ordered 4. Will continue with expectant management at this time. RAJESH OB-HPI Labor/Delivery History of Present Illness Reason for Visit: Term labor Chief Complaint: Uterine Contractions. SIOBHAN Calculator Estimated Delivery Date Method Current WG Current Estimate 02/15/23 LMP (Certain) 40w 4d Comments: Dunia and her present for labor assessment. Reports regular painful contractions since 0100 that have become every 3-5 minutes and increasing intensity. Denies LOF or bloody show. Is considering epidural in labor and agrees to IV saline lock placement. RAJESH History of Present Expected Delivery Route/Plan - CNM Dunia FOB-Nicholas Natarajan (his first child) Pilo Christopher Hopes for regional anesthesia (intrathecal if going quickly) Varicella immunity equivocal, offer vaccine GBS negative Specific Issues/Plan 1. Hemorrhoids- banding procedure at [facility] 02/2022- takes homeopathic remedy for external hemorrhoids 2. LGSIL pap 2020 at [facility] - no follow up 3. Genetic testing: [employer] LR,female, CF screen neg, declines AFP 4. initial UDS +THC, repeated @ 29 wks and is +THC, met w/KH BHS and POSC completed 5. Right sciatica and pain in left groin, consider PT, declines. Assessment: History Reviewed & Current Review of Systems All systems reviewed & are unremarkable except as noted in HPI and below Genitourinary Comments: regular uterine contractions PFSH All Active Problems (Updated 02/19/23 @ 07:57 by Farideh Flores CNM) Uterine contractions (Acute) Other specified counseling (Acute) Constipation (Acute) Pain in left foot (Acute) Foreign body in left foot (Acute) Susceptible to varicella (non-immune), currently (Acute) Marijuana use during (Acute) LGSIL of cervix of undetermined significance (Acute) (Acute) Hemorrhoids, internal, with bleeding (Acute) External hemorrhoid, bleeding (Acute) Medical History Finger pain History of PID Unspecified disorder of synovium and tendon, unspecified hand Surgical History [place] teeth extracted Family History Maternal Grandfather Diabetes Father Diabetes Arthritis Daughter Leukemia Paternal Grandfather Suicide Maternal Grandfather Vascular disease Social History Smoking/Tobacco Use Status: Former Tobacco Use Quit Date: 02/10/18 Smoking risk assessment performed?: Yes Alcohol Intake: current Alcohol Intake frequency: a few times a month Drug use: Never Substance use type: does not use Details: monthly Household members: significant other and children Housing: house Number of Children: 2 Do you feel safe at home: Yes Do you feel safe in your relationship?: Yes History History 5 Para 2 Hx # Term Pregnancies 2 Multiple births 0 Hx # Pregnancies 0 Ectopic pregnancies 0 AB induced 2 Hx Number of Living Children 2 AB spontaneous 0 Past Pregnancies Del. 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 Pitocin augmentation Delivery Date: 01/07/16 Last Updated by: Farideh Padron CNM PROM, pitocin augmentation, meconium Meds Allergies and Home Medications Allergies Allergy/AdvReac Type Severity Reaction Status Date / Time No Known Allergies Allergy Verified 02/19/23 07:53 Home Medications Medication Instructions Recorded Confirmed Type vitamin no.180-ferrous 1 tab PO DAILY #30 tabs 09/27/22 02/19/23 Rx fumarate 27 mg-folic acid 1 mg tablet ( Plus Vitamin-Mineral) ferrous sulfate 324 mg (65 mg 324 mg PO DAILY #90 tabs 01/24/23 02/19/23 Rx iron) tablet,delayed release Exam Physical Exam Vital signs: Temp Pulse Resp BP 97.9 F 79 16 125/71 02/19/23 07:35 02/19/23 07:35 02/19/23 07:35 02/19/23 07:35 Vital Signs Reviewed: Yes Detailed Labor and Delivery Exam Dilation: 2 Effacement (%): 70 station: -2 Position: ROP Cervix position: posterior Consistency: soft Quarles Score: Cervical Points Exam 0 1 2 3 Dilation Closed 1-2cm 3-4 cm 5-6cm Effacement 0-30% 40-50% 60-70% 80% Consistency Firm Medium Soft Station -3 -2 -1,0 +1,+2 Position Posterior Mid Anterior QUARLES Score(Cervical Ripeness Score): 6 Amniotic Membrane Status: Intact Contraction Frequency(min): 4-5 Contraction Duration(sec): 60-90 Contraction Intensity: Moderate Fetus A Heart Rate Baseline: 140 Monitor Accelerations: 15 X 15 Monitor Decelerations: None Variability: Moderate (6-25 BPM) Categories: Category I HEENT Exam HEENT Exam: Normal Neck Exam Neck Exam: Normal (visual exam, full range of motion) Chest/Brest/Axilla Exam Chest Exam: Normal Breast Exam Breast Exam: Not Done Respiratory Exam Respiratory Exam: Normal Cardiovascular Exam Cardiovascular Exam: Normal Abdominal Exam Abdominal Exam: Normal (gravid uterus, size equals dates, ROP at this time) Rectal Exam Rectal Exam: Not Done Exam Exam: Normal Extremities Exam Extremities Exam: Normal Back/Spine/Pelvis Exam Back Exam: Normal Pelvis Adequate: Yes Skin Exam Skin Exam: Normal Neurological Exam Neurological Exam: Normal Psychiatric Exam Psychiatric Exam: Normal Results Results Group Beta Strep: Negative Blood Type: A+ Rubella Status: Immune Varicella Immunity: Equivocal Lab Results: CF negative, cfDNA LR female, Hep B and C neg, HIV neg, Syphilis neg, UDS + twice in for THC (has completed a family safety plan)1 hour glucose 113 Risk Assessment Risk for Shoulder Dystocia Historical/Initial OB: NEGATIVE FOR: Pelvic Abnormality, Pre- BMI>30, Previous Shoulder Dystocia or Previous Macrosomia 36 Weeks: NEGATIVE FOR: Current Gestational DM, EFW>4500gms or Maternal Weight Gain>40lbs 40 Weeks: NEGATIVE FOR: EFW> 4500 gms, Maternal Weight Gain >40lb or Post Dates Delivery Plan @ 36wks: 01/24/23 SUELLEN MENA Delivery Plan @ 40 wks: SUELLEN MENA Risk for Pre-Eclampsia Date Initiated/Initials: KM 08/07/22 Yes, if one or more: NEGATIVE FOR: Hx Pre-E/Gest HTN, Chronic HTN, Multiple Gestation, Pre-gestational DM, Renal Disease, Systemic Lupus or APA Syndrome Yes, if 2 or more: NEGATIVE FOR: Nulliparity, Age>= 35 yrs, >10yr btwn pregnancies, BMI>30, ethinicty, Mother/Sister w/ Pre-E or Previous IUGR Risk for Post- Hemorrhage 36 Weeks: NEGATIVE FOR: Anemia, hgb<10, Low platelets(thrombocytopenia), Gestational HTN or Pre-E, Polyhydraminios or EFW>4500gms 40 Weeks: NEGATIVE FOR: Anemia, hgb<10, Low platelets (thrombocytopenia), Gestation HTN or Pre-E, Polyhydraminios or EFW>4500gms Counseled re: Active Management: Yes Date/Initials: 02/19/23 RAJESH Risks Reviewed Risks Reviewed Upon Admission: Yes (no increased risks at this time. RAJESH)
[2023-02-19 08:23] LABS: HCT 32.9 % (36.0-46.0); HGB 10.8 g/dL (11.2-15.7); MCH 26.8 pg (27.0-33.0); MCHC 32.8 % (32.0-36.0); MCV 82 fL (80-95); MPV 9.6 fL (8.0-11.0); Platelet Count 278 10^3/uL (130-400); RBC 4.03 10^6/uL (3.93-5.22); RDW 13.9 % (11.7-14.6); RDW-SD 41.1 fL; WBC 11.18 10^3/uL (4.4-10.8)
--- NOTE | 2023-02-19 08:23 | ANES.PREOP_ITS ---
General Info Date of Service Date Performed: 02/19/23 Height: 5 ft 6 in Weight: 78.925 kg Body Mass Index (BMI): 28.0 Meds Allergies and Home Medications Allergies Allergy/AdvReac Type Severity Reaction Status Date / Time No Known Allergies Allergy Verified 02/19/23 07:53 Home Medication Medication Instructions Recorded vitamin no.180-ferrous 1 tab PO DAILY #30 tabs 09/27/22 fumarate 27 mg-folic acid 1 mg tablet ( Plus Vitamin-Mineral) ferrous sulfate 324 mg (65 mg 324 mg PO DAILY #90 tabs 01/24/23 iron) tablet,delayed release Current Visit Medications: Current Medications Generic Name Dose Route Start Last Admin Trade Name Freq PRN Reason Stop Dose Admin IV Miscellaneous Supplies 1 each 02/19/23 07:45 Iv Access IV DIRECTED ASHWIN Sodium Chloride 0 ml 02/19/23 07:45 Normal Saline Flush 10 Ml Syr IVP PRN PRN Sodium Chloride 0 ml 02/19/23 08:30 Normal Saline Flush 10 Ml Syr IVP BID ASHWIN Sodium Chloride 0 ml 02/19/23 07:45 Normal Saline 10 Ml Vial IJ DIRECTED PRN PFSH Active Problems Active Problems: Problem Status Onset Code Other specified counseling Z71.89 Constipation K59.00 Pain in left foot M79.672 Foreign body in left foot S90.852A Susceptible to varicella (non-immune), currently O09.899, Z28.39 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 Pt reports occasional marijauna, monthly. Surgical History Surgical History [place] teeth extracted Tobacco Smoking/Tobacco Use Status: Former Tobacco Use Alcohol Alcohol Intake: current Alcohol intake frequency: a few times a month Substance Use Substance use: Never Substance use type: does not use Details: monthly Prental History History 2 5 Para 2 Hx # Term Pregnancies 2 Multiple births 0 Hx # Pregnancies 0 Ectopic pregnancies 0 AB induced 2 Hx Number of Living Children 2 AB spontaneous 0 Past Pregnancies Del. 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 Pitocin augmentation Delivery Date: 01/07/16 Last Updated by: Farideh Padron CNM PROM, pitocin augmentation, meconium Vital Signs and Lab Results Vital Signs Most Recent Vital Signs in EMR: Most Recent Vital Signs Temp Pulse Resp BP 36.6 C 79 16 125/71 02/19/23 07:35 02/19/23 07:35 02/19/23 07:35 02/19/23 07:35 Lab Results 02/19/23 08:15 Blood Type / Crossmatch: 2 No Data to Display Complete Blood Count: 2 White Blood Count 11.18 10^3/uL (4.4-10.8) H 02/19/23 08:15 Red Blood Count 4.03 10^6/uL (3.93-5.22) 02/19/23 08:15 Hemoglobin 10.8 g/dL (11.2-15.7) L 02/19/23 08:15 Hematocrit 32.9 % (36.0-46.0) L 02/19/23 08:15 Platelet Count 278 10^3/uL (130-400) 02/19/23 08:15 Complete Metabolic Panel: 2 No Data to Display Liver Function Panel: 2 No Data to Display Coagulation Panel: 2 No Data to Display Cardiac Panel: 2 No Data to Display Arterial Blood Gas: 2 No Data to Display Venous Blood Gas: 2 No Data to Display Pancreas Panel: 2 No Data to Display Thyroid Panel: 2 No Data to Display Infectious Disease: 2 No Data to Display Blood Cultures: 2 No Data to Display Toxicology Panel: 2 Urine Amphetamines Screen Negative (Negative) 01/24/23 08:35 Urine Benzodiazepines Screen Negative (Negative) 01/24/23 08:3 5 Urine Barbiturates Screen Negative (Negative) 01/24/23 08:35 Urine Cocaine Screen Negative (Negative) 01/24/23 08:35 Urine Methadone Screen Negative (Negative) 01/24/23 08:35 Urine Opiates Screen Negative (Negative) 01/24/23 08:35 Ur Tricyclic Antidepressants Screen Negative (Negative) 08:35 Ur Tetrahydrocannabinol (THC) Scrn Positive (Negative) A 01/24 08:35 Panel: 2 No Data to Display Anesthesia Assessment and Plan Anesthesia History Personal History: No History of Anesthesia Complications Family History: No Family History of Anesthesia Complications Exercise Tolerance Exercise Tolerance: Metabolic Equivalents>4 Pertinent Negatives Pertinent Negatives: No Symptoms of GERD Cardiac & Pulmonary Exam Cardiac Exam: Normal S1/S2 Heart Sounds Pulmonary Exam: Clear Bilateral Breath Sounds Implantable Cardiac Device Does patient have a Pacemaker or an ICD?: No Airway Exam Known Difficult Airway: No Mallampati Class: 2 Mouth Opening: Normal (> 3cm) Thyromental Distance: Greater than 3 cm Neck Range of Motion: Full ROM Neck Circumference: Normal Teeth Condition: Normal Dentition ASA Classification ASA Score: ASA 2 Emergency Case?: No NPO Status NPO Status: NPO Clear Liquids>2 hours Status Status: Confirmed Anesthesia Plan Resuscitation Status: Full Code Anesthesia Technique: Labor Epidural Airway Planned: Natural Airway Monitors Used: Standard Monitors
--- NOTE | 2023-02-19 12:35 | W.PM.OBNL1 ---
Date of service: 02/19/23 Time of Service: 12:20 Pelvic Exam Dilation: 4 Effacement (%): 90 station: -2 Position: LOP Cervix Position: posterior Consistency: soft Contractions Monitor Mode: Palpation Contraction Frequency(min): 4-5 Contraction Duration(sec): 60 Intensity: Moderate Fetus A Amniotic Membrane Status: Intact (bulging) Assessment Note: intermittent doppler FHR has been WNL. Assessment and Plan Assessment and plan (1) Normal labor: Status: Acute Assessment and plan: 1. Has had normal cervical change, working well with contractions. 2. Continue present management and expect NVD. Objective Abnormal lab results 02/19/23 Range/Units 08:15 WBC 11.18 H (4.4-10.8) 10^3/uL Hgb 10.8 L (11.2-15.7) g/dL Hct 32.9 L (36.0-46.0) % MCH 26.8 L (27.0-33.0) pg Temp Pulse Resp BP Pulse Ox 97.7 F 73 16 123/72 98 02/19/23 11:12 02/19/23 11:12 02/19/23 11:12 02/19/23 11:12 02/19/23 11:12 Laboratory Results WBC 11.18 10^3/uL (4.4-10.8) H 02/19/23 08:15 RBC 4.03 10^6/uL (3.93-5.22) 02/19/23 08:15 Hgb 10.8 g/dL (11.2-15.7) L 02/19/23 08:15 Hct 32.9 % (36.0-46.0) L 02/19/23 08:15 MCV 82 fL (80-95) 02/19/23 08:15 MCH 26.8 pg (27.0-33.0) L 02/19/23 08:15 MCHC 32.8 % (32.0-36.0) 02/19/23 08:15 RDW 13.9 % (11.7-14.6) 02/19/23 08:15 Plt Count 278 10^3/uL (130-400) 02/19/23 08:15 MPV 9.6 fL (8.0-11.0) 02/19/23 08:15 Patient ABO/Rh A Positive 02/19/23 08:15 Antibody Screen NEGATIVE 02/19/23 08:15 Vital Signs Reviewed: Yes Subjective Interval history since last seen: states contractions are getting stronger. denies LOF or but has had spotting. working well with contractions. Results Hemoglobin/Hematocrit: Hgb 10.8 g/dL (11.2-15.7) L 02/19/23 08:15 Hct 32.9 % (36.0-46.0) L 02/19/23 08:15 Abnormal Lab Findings: Abnormal Labs 02/19/23 08:15 WBC 11.18 H Hgb 10.8 L Hct 32.9 L MCH 26.8 L
--- NOTE | 2023-02-19 18:44 | W.PM.OBNL1 ---
Date of service: 02/19/23 Time of Service: 18:44 Pelvic Exam Comments: VE deferred Contractions Monitor Mode: External Contraction Frequency(min): 3-6 Contraction Duration(sec): 60-90 Intensity: Moderate/Strong Fetus A Monitor: External (US) Heart Rate Baseline: 130 Variability: Moderate (6-25 BPM) Categories: Category I Accelerations: Present Decelerations: Early Assessment and Plan Assessment and plan (1) Normal labor: Status: Acute Assessment and plan: 1. Epidural in place with good relief 2. Plan to allow for period of rest and then reassess unless otherwise indicated by maternal status. 3. Continue to expect NVD. KH Objective Abnormal lab results 02/19/23 Range/Units 08:15 WBC 11.18 H (4.4-10.8) 10^3/uL Hgb 10.8 L (11.2-15.7) g/dL Hct 32.9 L (36.0-46.0) % MCH 26.8 L (27.0-33.0) pg Temp Pulse Resp BP Pulse Ox 97.9 F 70 20 121/70 98 02/19/23 15:14 02/19/23 18:40 02/19/23 15:14 02/19/23 18:38 02/19/23 18:40 Laboratory Results WBC 11.18 10^3/uL (4.4-10.8) H 02/19/23 08:15 RBC 4.03 10^6/uL (3.93-5.22) 02/19/23 08:15 Hgb 10.8 g/dL (11.2-15.7) L 02/19/23 08:15 Hct 32.9 % (36.0-46.0) L 02/19/23 08:15 MCV 82 fL (80-95) 02/19/23 08:15 MCH 26.8 pg (27.0-33.0) L 02/19/23 08:15 MCHC 32.8 % (32.0-36.0) 02/19/23 08:15 RDW 13.9 % (11.7-14.6) 02/19/23 08:15 Plt Count 278 10^3/uL (130-400) 02/19/23 08:15 MPV 9.6 fL (8.0-11.0) 02/19/23 08:15 Patient ABO/Rh A Positive 02/19/23 08:15 Antibody Screen NEGATIVE 02/19/23 08:15 Subjective Interval history since last seen: Dunia requested epidural and it has been placed. She is getting bolus and feeling much better. Plan is a period of rest and then reassess for progress and potential AROM at that time. KH Results Hemoglobin/Hematocrit: Hgb 10.8 g/dL (11.2-15.7) L 02/19/23 08:15 Hct 32.9 % (36.0-46.0) L 02/19/23 08:15 Abnormal Lab Findings: Abnormal Labs 02/19/23 08:15 WBC 11.18 H Hgb 10.8 L Hct 32.9 L MCH 26.8 L
--- NOTE | 2023-02-19 18:49 | W.ANESNEU ---
Epidural/Spinal Catheter Date Performed: 02/19/23 Procedure Start: 18:06 Procedure Stop: 18:40 Requesting Provider: Farideh Flores Procedure Location: Obstetrics Reason Performed: Labor Epidural Standard Monitors Applied: ECG, Blood Pressure and See EMR for corresponding vital signs Patient Position: Sitting Sedation Given (Indicate Dose Given): No Sedation given Patient Mental Status: Awake Sterility: Hand Hygiene, Surgical Cap, Surgical Mask, Sterile Gloves, Sterile Drape/Sheet, Eye Protection and Chlorhexidine Procedure Location: L3-L4 Interspace Epidural Needle: Tuohy 18 Gauge Needle Length: 3.5 Inch Needle Approach: Midline Epidural Procedure: Skin Prepped, Sterile Drape Placed, 1% Lidocaine to skin and subcutaneous tissue with 25G needle, Tuohy Needle placed, ALIYA to Saline Used, Epidural Catheter Placed, Negative Heme, Negative CSF Flow and Tuohy Needle Removed Catheter Placed?: Catheter Placed Test Dose (Indicate Dose Given): 3ml 1.5% Lidocaine with 1:200K Epinephrine Given and Negative Test Dose Loss of Resistance Depth (cm): 6 Catheter depth at skin (cm): 12 Dressing: [place] Dressing Placed, Tegaderm Applied, Mastisol Used and Dressing reinforced with Tape Epidural Provider Bolus (Indicate Dose Given): Total Ropivacaine 0.1% with Fentanyl 2mcg/ml Given from pump. (ml) Dose:: 8cc Additives (Indicate Dose Given ): None Infusion Medication: Medication Infusion Began Medication Infusion: Ropivacaine 0.1% with Fentanyl 2mcg/ml Maintenance Infusion Rate (ml/hour): 10 PCEA Bolus Dose (ml): 5 Post Procedure Pain score (0-10): 2 Block Level: T7 Paresthesia: None Ultrasound: Used to yanna site Number of Attempts (See previous attempts in note section): 1 Procedure Tolerated: No Complications and Patient tolerated well Procedure Outcome: Successful Performed By: Jorge Montelongo
[2023-02-19] MEDS: Normal Saline Flush 10 ML SYR IVP (18:56)
[2023-02-19] MEDS: FentaNYL/ROPIvacaine 2 mcg/ml and 0.1% 200 ML CADD Cassette EP (18:56)
[2023-02-19] MEDS: Lactated Ringers 1,000 ML 125 ML IV (19:44)
--- NOTE | 2023-02-19 20:24 | W.PM.OBNL1 ---
Date of service: 02/19/23 Time of Service: 20:24 Pelvic Exam Dilation: 9 Effacement (%): 100 station: -1 Cervix Position: anterior Consistency: soft Contractions Monitor Mode: External Contraction Frequency(min): 3-5 Contraction Duration(sec): 60-90 Intensity: Moderate/Strong Fetus A Monitor: External (US) Heart Rate Baseline: 120 Variability: Moderate (6-25 BPM) Categories: Category II (position change and VE with AROM) CategoryII Plan of Care: Intrauterine Resuscitation and Continuous Monitoring/Observation Accelerations: Present Decelerations: Late (intermittent) Amniotic Membrane Status: Ruptured Rupture Method: Artifical Amniotic Fluid: Meconium (thin) Amount: large Date of Membrane Rupture: 02/19/23 Assessment and Plan Assessment and plan (1) Normal labor: Status: Acute Assessment and plan: 1. AROM and thin mec fluid noted. Reviewed with team and will notify pediatric provider who is on unit at time of . 2. Expect NVD. KH Objective Abnormal lab results 02/19/23 Range/Units 08:15 WBC 11.18 H (4.4-10.8) 10^3/uL Hgb 10.8 L (11.2-15.7) g/dL Hct 32.9 L (36.0-46.0) % MCH 26.8 L (27.0-33.0) pg Temp Pulse Resp BP Pulse Ox 97.9 F 84 20 125/62 98 02/19/23 15:14 02/19/23 20:21 02/19/23 17:55 02/19/23 20:19 02/19/23 20:19 Laboratory Results WBC 11.18 10^3/uL (4.4-10.8) H 02/19/23 08:15 RBC 4.03 10^6/uL (3.93-5.22) 02/19/23 08:15 Hgb 10.8 g/dL (11.2-15.7) L 02/19/23 08:15 Hct 32.9 % (36.0-46.0) L 02/19/23 08:15 MCV 82 fL (80-95) 02/19/23 08:15 MCH 26.8 pg (27.0-33.0) L 02/19/23 08:15 MCHC 32.8 % (32.0-36.0) 02/19/23 08:15 RDW 13.9 % (11.7-14.6) 02/19/23 08:15 Plt Count 278 10^3/uL (130-400) 02/19/23 08:15 MPV 9.6 fL (8.0-11.0) 02/19/23 08:15 Patient ABO/Rh A Positive 02/19/23 08:15 Antibody Screen NEGATIVE 02/19/23 08:15 Subjective Interval history since last seen: Patient reports some vaginal pressure. VE done, agreed to AROM, 9cm thin mec fluid. Pediatric provider is already in house and we will notify him at time of dleivery.KH Results Hemoglobin/Hematocrit: Hgb 10.8 g/dL (11.2-15.7) L 02/19/23 08:15 Hct 32.9 % (36.0-46.0) L 02/19/23 08:15 Abnormal Lab Findings: Abnormal Labs 02/19/23 08:15 WBC 11.18 H Hgb 10.8 L Hct 32.9 L MCH 26.8 L
[2023-02-19] MEDS: Oxytocin/Normal Saline 30 UNIT/500 ML BAG 334 UNITS IV (20:38)
--- NOTE | 2023-02-19 21:07 | W.OBDELIVERY ---
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 She progressed in labor normally. Recieved epidural for pain management at 6cm and rested for a couple of hours. FHR CAT I. At 2014 it was noted there were FHR decelerations with contractions, VE performed, 9/100/-2 AROM thin mec fluid. In the next several minutes she had uncontrolled urge to push. Second stage huddle was held. Pediatric provider happened to be in the hospital and was informed of thin mec fluid and that was imminent. Ambika pushed effectively and delivered a live female over intact perineum at 2136. There was a loose nuchal cord X 1 that was reduced before shoulders delivered. Dunia was able to reach down to help deliver her baby onto her abdomen. Baby was placed skin to skin as she was vigorous and crying at delivery. Delayed cord clamping until cord stopped pulsing. Pitocin IV was running per protocol after . Placenta delivered with maternal pushing effort at 2052, intact. They plan to take their placenta home with them. Fundus firmed to U-1 with massage. Bi manual exam revealed no clots in lower uterine segment and that lower uterine segment was firm. EBL 150cc. There was a 0.5cm superficial abrasion to left labia that is hemostatic and left unrepaired, otherwise intact. Dunia plans to breast feed her daughter who is named Pilo Christopher. score 9/9. Expect normal PP course with discharge to home in 24-48 hours. See completed delivery record for weight. Providers Nurse Tax Accounting Manager: Farideh Flores Nurse: Ila Moncada Nurse: Deloris Le Labor/Delivery Information Number of Babies in Womb: 1 Steroids Given: None Reason Steroids Not Administered: N/A Group Beta Strep: Negative Antibiotics Administered: No Rubella Status: Immune Blood Type: A+ Varicella Immunity: Equivocal Maternal Complications: None Stages of Labor Onset of Labor Date: 02/19/23 Onset of Labor Time: 01:00 Complete Dilatation Date: 02/19/23 ROM Baby A: 02/19/23 ROM Baby A: 20:17 Infant Delivery Date-Baby A: 02/19/23 Delivery Time-Baby A: 20:37 Placenta Delivery Date-Baby A: 02/19/23 Placenta Delivery Time-Baby A: 20:53 Labor-Stage 3 Duration: 16 minutes Total Length of Labor-Baby A: 19 hours and 37 minutes Placenta Cultured: No Placenta Status: Delivered Baby A Infant Gender: Female Gestational Age in Weeks/Days: 40 Weeks and 4 Days Score-1 Minute Interval(Baby A) Heart Rate-1 minute: 100 BPM or Greater Respiratory Effort- 1 minute: Spontaneous/Strong Cry Muscle Tone-1 minute: Active Movement Reflex Response-1 minute: Prompt Response Color-1 minute: Bluish Hands or Feet Total Score-1 minute: 9 Score-5 Minute Interval(Baby A) Heart Rate- 5 minute: 100 BPM or Greater Respiratory Effort-5 minute: Spontaneous/Strong Cry Muscle Tone-5 minute: Active Movement Reflex Response-5 minute: Prompt Response Color-5 minute: Bluish Hands or Feet Total Score- 5 minute: 9
[2023-02-19] MEDS: Ibuprofen 600 MG TAB PO (22:17)
[2023-02-19] MEDS: Acetaminophen 325 MG TAB 650 MG PO (22:18)
[2023-02-20] VITALS (9 sets, daily range): BP systolic 116–133; BP diastolic 73–94; PULSE 59–73; RESP 16–20; TEMP 36.4–37; O2SAT 98–99
[2023-02-20] MEDS: Dibucaine 1% 28 GM TUBE TP (02:41)
[2023-02-20] MEDS: Hamamelis Leaf/Glycerin 100 EACH BOX PR (02:42)
--- NOTE | 2023-02-20 09:17 | W.ANESNEU ---
Epidural/Spinal Cath. Removal Date Performed: 02/19/23 Procedure Time: 22:10 Catheter Removal Type: Epidural Catheter Procedure Location: Obstetrics Patient Position: Sitting Catheter Removal Procedure: Dressing Removed, Catheter Removed without Resistance and Catheter Tip Intact Paresthesia: None Procedure Tolerated: No Complications and Patient tolerated well Procedure Outcome: Successful Procedure Comment:: Removed by OB RN Performed By: Jorge Montelongo
--- NOTE | 2023-02-20 09:20 | W.ANESPOSTOP ---
Postoperative Evaluation Date, Time and Location Date Performed: 02/20/23 Time Performed: 09:20 Patient Location: Obstetrics Vital Signs Most Recent Imported Vital Signs: Most Recent Vital Signs Temp Pulse Resp BP Pulse Ox 36.8 C 83 18 126/87 97 02/19/23 21:24 02/19/23 23:39 02/20/23 02:00 02/20/23 01:33 02/19/23 21:25 Pain Score Most Recent Pain Score: Most Recent Pain Score Pain Level 0 02/20/23 02:00 Assessment Mental Status: Awake (Alert & Oriented to Patient Baseline) Airway and Respiratory Function: Patent airway with normal (patient baseline) respiratory exam Cardiovascular Function: Hemodynamically Stable Hydration Status: Adequately Hydrated Nausea & Vomiting: No Nausea or Vomiting Pain: Pt. Denies Any Pain Peripheral Nerve Block: Other (Epidural cath removed at 2210 on 02/19/23 by OB RN.)
--- NOTE | 2023-02-20 11:19 | W.PM.OBPNV1 ---
Date of service: 02/20/23 Time of Service: 08:30 Assessment and Plan Assessment and plan (1) care following vaginal delivery: Status: Acute Assessment and plan: 1. Normal PP course to date 2. Continue expectant management 3. Possible discharge to home later today or in am 03/04/23. Exam Physical Exam Vital signs: Temp Pulse Resp BP Pulse Ox 97.7 F 59 L 16 123/89 98 02/20/23 07:30 02/20/23 07:30 02/20/23 07:30 02/20/23 07:30 02/20/23 07:30 Vital Signs Reviewed: Yes Constitutional Constitutional: no acute distress, average body habitus and cooperative HEENT Exam HEENT Exam: Normal Neck Exam Neck Exam: Normal (normal visual inspection) Respiratory Exam Respiratory Exam: Normal Cardiovascular Exam Cardiovascular Exam: Normal Abdominal Exam Abdomen: Other (normal exam) Fundal Exam Fundus: Below Umbilicus and Firm Comment: small lochia noted. Rectal Exam Rectal Exam: Not Done Exam Perineum: Intact and Normal Extremities Exam Extremity Exam: Normal (denies calf tenderness) and Full ROM Back/Spine/Pelvis Exam Back Exam: Normal Skin Exam Skin Exam: Normal Neurological Exam Neurological Exam: Normal Psychiatric Exam Psychiatric Exam: Normal Results Hemoglobin/Hematocrit: Hgb 10.8 g/dL (11.2-15.7) L 02/19/23 08:15 Hct 32.9 % (36.0-46.0) L 02/19/23 08:15 Abnormal Lab Findings: Abnormal Labs 02/19/23 08:15 WBC 11.18 H Hgb 10.8 L Hct 32.9 L MCH 26.8 L
[2023-02-20] MEDS: Acetaminophen 325 MG TAB 650 MG PO ×2 (15:25→19:33)
[2023-02-20] MEDS: Ibuprofen 600 MG TAB PO (15:26)
--- NOTE | 2023-02-20 19:55 | W.PM.OBDISCH ---
Date of service: 02/20/23 Time of Service: 19:55 DS: Diagnosis Discharge Diagnosis (1) care following vaginal delivery: Status: Acute Asessment and Plan: 1. NVD followed by normal PP course to date 2. breast feeding well established 3. To return to office 2 and 6 weeks PP or prn. Discharge Plan Disposition Patient Disposition: Home Condition: Good Discharge Details Reason For Visit: Early Labor at 40weeks 4 Days Admit Date/Time: 02/19/23 07:45 Admit Provider: Farideh Flores Attending Provider: Farideh Flores Primary Care Provider: Aury Carrillo Hospital Course Hospital Course: Ambika presented in early labor and progressed to active labor without intervention. She received an epidural with good results and continued on to NVD over intact perineum of live female. She has had a normal PP course. Home Meds and New Rx's Prescriptions: Continued ferrous sulfate 324 mg (65 mg iron) tablet,delayed release (DR/EC) 324 mg PO DAILY Qty: 90 1RF Plus Vitamin-Mineral 27 mg iron- 1 mg tablet 1 tab PO DAILY Qty: 30 5RF Discharge Instructions Instructions: Depression (GEN), Hormonal Contraceptives (GEN) Stand Alone Forms: BC Instructions, BC Post Vaginal Deliver Activity:: no intercourse for 6 week Equipment/Supplies:: No Equipment Needed Diet:: As Tolerated Discharge Orders Discharge Orders: Discharge Order (Routine); Ordered 02/20/23 Ordered By: Farideh Flores OB:DS Summary Summary Vaginal Delivery Method: Spontaneaous Contraception Discussed Contraception Discussed: Yes, Gender-Baby A: Female Status at Discharge Functional status at discharge: independent ambulation Overall status at discharge: patient is back to baseline Mental Status: mental status grossly normal Speech and Movement: speech and movement normal Mood: congruent mood Affect: normal affect Time Spent with Patient providing and/or coordinating discharge services: Less than 30 minutes Quality:SDOH Health Related Social Needs: No Data to Display Exam Physical Exam Vital signs: Temp Pulse Resp BP Pulse Ox 97.5 F L 72 16 123/73 99 02/20/23 15:25 02/20/23 15:25 02/20/23 15:25 02/20/23 15:25 02/20/23 15:25 Vital Signs Reviewed: Yes Constitutional Constitutional: no acute distress, average body habitus and cooperative HEENT Exam HEENT Exam: Normal Neck Exam Neck Exam: Normal (normal visual inspection) Respiratory Exam Respiratory Exam: Normal Cardiovascular Exam Cardiovascular Exam: Normal Abdominal Exam Abdomen: Other (normal exam) Fundal Exam Fundus: Below Umbilicus and Firm Comment: small lochia noted. KH Rectal Exam Rectal Exam: Not Done Exam Perineum: Intact and Normal Extremities Exam Extremity Exam: Normal (denies calf tenderness) and Full ROM Back/Spine/Pelvis Exam Back Exam: Normal Skin Exam Skin Exam: Normal Neurological Exam Neurological Exam: Normal Psychiatric Exam Psychiatric Exam: Normal PFSH All Active Problems (Updated 02/20/23 @ 11:19 by Farideh Flores CNM) care following vaginal delivery (Acute) Constipation (Acute) Susceptible to varicella (non-immune), currently (Acute) Marijuana use during (Acute) LGSIL of cervix of undetermined significance (Acute) (Acute) Hemorrhoids, internal, with bleeding (Acute) External hemorrhoid, bleeding (Acute) Medical History (Updated 02/20/23 @ 11:19 by Farideh Flores CNM) Normal labor Uterine contractions Other specified counseling Pain in left foot Foreign body in left foot History of PID Unspecified disorder of synovium and tendon, unspecified hand Finger pain Surgical History [place] teeth extracted Family History Maternal Grandfather Diabetes Father Diabetes Arthritis Daughter Leukemia Paternal Grandfather Suicide Maternal Grandfather Vascular disease Social History Smoking/Tobacco Use Status: Former Tobacco Use Quit Date: 02/10/18 Smoking risk assessment performed?: Yes Alcohol Intake: current Alcohol Intake frequency: a few times a month Drug use: Never Substance use type: does not use Details: monthly Household members: significant other and children Housing: house Number of Children: 2 Do you feel safe at home: Yes Do you feel safe in your relationship?: Yes History History 5 Para 2 Hx # Term Pregnancies 2 Multiple births 0 Hx # Pregnancies 0 Ectopic pregnancies 0 AB induced 2 Hx Number of Living Children 2 AB spontaneous 0 Past Pregnancies Del. 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 Pitocin augmentation Delivery Date: 01/07/16 Last Updated by: Farideh Padron CNM PROM, pitocin augmentation, meconium DS: Data Vitals/I&O Vitals and I&O: Vital Signs Temperature 97.5 F L 02/20/23 15:25 Temperature Source Oral 02/20/23 15:25 Pulse 72 02/20/23 15:25 Pulse Rhythm Regular 02/20/23 07:30 Respiratory Rate 16 02/20/23 15:25 Blood Pressure 123/73 02/20/23 15:25 Blood Pressure Mean 89 02/20/23 15:25 Pulse Oximetry 99 02/20/23 15:25 Pain Level 2 02/20/23 15:26 Intake & Output 02/19/23 02/20/23 02/20/23 23:59 11:59 23:59 Intake Total 477 / 477 Output Total 690 / 840 950 / 950 Balance -213 / -363 -950 / -950 Intake: IV 177 / 177 Oral 300 / 300 Output: Urine 690 / 840 950 / 950 Other: Urine Color Pale
== END 2023-02-20 22:02 | disposition home or self-care (01) | DRG 807 ==
PROVIDERS: Admitting Provider Advanced Practice Midwife; PCP Nurse Practitioner Family; Visit Provider Advanced Practice Midwife
DX: O99.62 Diseases of the digestive system complicating childbirth (principal); Z37.0 Single live birth; Z3A.40 40 weeks gestation of pregnancy; O77.0 Labor and delivery complicated by meconium in amniotic fluid; O69.81X0 Labor and delivery complicated by cord around neck, without compression, not applicable or unspecified; O99.324 Drug use complicating childbirth; F12.90 Cannabis use, unspecified, uncomplicated; K64.4 Residual hemorrhoidal skin tags; K59.00 Constipation, unspecified; K64.8 Other hemorrhoids; O28.2 Abnormal cytological finding on antenatal screening of mother
CPT/HCPCS: 36415; 85027; 86850; 86900; 86901

== ENCOUNTER 2024-03-16 15:23 | Outpatient (REF) | payer MEDICAID, SELFPAY | END 2024-03-16 15:24 | disposition home or self-care (01) | LOC: LBN 15:23 | PROVIDERS: Visit Provider Nurse Practitioner Family | DX: N30.01 Acute cystitis with hematuria (principal) | CPT/HCPCS: 87086 ==

== ENCOUNTER 2024-11-15 02:32 | Outpatient (CLI) | payer MEDICAID, SELFPAY ==
--- NOTE | 2024-11-15 07:15 | DI.US_ITS ---
Exam(s) US OB F/U FACIAL/LVOT/RVOT EXAM: US OB F/U FACIAL/LVOT/RVOT CLINICAL HISTORY: unsure dates Z34.90 SUPERVISION NORMAL . TECHNIQUE: Transabdominal obstetrical ultrasound performed. COMPARISON: US US OB 2-3 TRIMESTER from 09/27/2022 FINDINGS: Number of fetuses: 1 BIOMETRIC DATA: BPD: 2.94cm, 15weeks 2days HC: 10.61cm, 15weeks AC: 8.17cm, 14weeks 4days FL: 1.46cm, 14weeks 2days EFW: 99.21g, 0.22lb, 3.5% Composite Age: 14weeks 6days SIOBHAN: 05/10/2025 Heart Rate: 164bpm IMPRESSION: 1. Single live intrauterine gestation as above. 2. Estimated gestational age is 14 weeks 6 days. 3. anatomic survey was not performed at this time. DATA REPOSITORY:
== END 2024-11-15 02:52 ==
PROVIDERS: Visit Provider Obstetrics & Gynecology
DX: Z34.92 Encounter for supervision of normal pregnancy, unspecified, second trimester (principal); Z3A.15 15 weeks gestation of pregnancy
CPT/HCPCS: 76815

== ENCOUNTER 2024-11-15 14:26 | Outpatient (CLI) | payer MEDICAID, SELFPAY ==
[2024-11-15 15:03] LABS: Abs Immature Grans 0.03 10^3/uL (0.0-0.06); HCT 34.8 % (36.0-46.0); HGB 11.9 g/dL (11.2-15.7); Immature Grans % 0.3 %; MCH 28.9 pg (27.0-33.0); MCHC 34.2 % (32.0-36.0); MCV 85 fL (80-95); MPV 10.2 fL (8.0-11.0); Platelet Count 269 10^3/uL (130-400); RBC 4.12 10^6/uL (3.93-5.22); RDW 14.5 % (11.7-14.6); RDW-SD 44.4 fL; WBC 10.84 10^3/uL (4.4-10.8)
[2024-11-17 10:11] LABS: HIV-1/2 Ag & Ab Screen Negative (Negative)
[2024-11-17 10:27] LABS: Hepatitis C Ab w Rflx HCV PCR Negative (Negative)
[2024-11-17 11:49] LABS: Rubella IgG Ab (UVM) Positive (See Note)
[2024-11-19 19:42] LABS: Syphilis IgG w/Reflex Nonreactive (Nonreactive)
== END 2024-11-15 14:27 | disposition home or self-care (01) ==
LOC: LBO 14:26
PROVIDERS: Visit Provider Advanced Practice Midwife
DX: Z34.91 Encounter for supervision of normal pregnancy, unspecified, first trimester (principal)
CPT/HCPCS: 36415; 86787; 86803; 86850; 86900; 86901; 87340; 87389; 85025; 86762; 86780

== ENCOUNTER 2024-11-15 14:39 | Outpatient (REF) | payer MEDICAID, SELFPAY ==
[2024-11-17 12:42] LABS: Chlamydia Result Negative (Negative); GC Result Negative (Negative)
== END 2024-11-15 14:40 | disposition home or self-care (01) ==
LOC: LBN 14:39
PROVIDERS: Visit Provider Advanced Practice Midwife
DX: Z34.91 Encounter for supervision of normal pregnancy, unspecified, first trimester (principal)
CPT/HCPCS: 87491; 87591

== ENCOUNTER → 2024-12-15 02:24 | Outpatient (CLI) | payer MEDICAID, SELFPAY ==
--- NOTE | 2024-12-15 07:50 | DI.US_ITS ---
Exam(s) US OB 2-3 TRIMESTER EXAM: US OB 2-3 TRIMESTER CLINICAL HISTORY: anatomy survey at 19 wks,z34.90. TECHNIQUE: Transabdominal obstetrical ultrasound was performed. COMPARISON: US US OB F/U FACIAL/LVOT/RVOT from 11/15/2024 FINDINGS: There is a single viable intrauterine gestation with cardiac activity identified-148 bpm. Amniotic fluid: There is a normal amount of amniotic fluid. Placental location: The placenta is anterior grade 1,with no evidence of placenta previa. ANATOMY: A 3 vessel umbilical cord is seen. A four-chamber cardiac view was obtained. Right and left ventricular outflow tracts were imaged. There are no obvious abnormalities of the spinal column evident. There is no obvious abnormality of the anterior abdominal wall. stomach and urinary bladder are identified and there is no evidence of hydronephrosis. No abnormalities of the upper lip region are identified. No evidence of choroid plexus cysts in the brain. Dating parameters place this at approximately 18 weeks and 4 days gestational age. BPD measures 19 weeks and 3 days HC measures 18 weeks and 6 days AC measures 17 weeks and 6 days FL measures 18 weeks and 1 day Estimated weight is 227 gm-0 pounds 8 ounces Fetus is at the less than 3rd percentile on the Hadlock scale. IMPRESSION:: Single viable intrauterine gestation which is approximately 18 weeks and 4 days gestational age, implying an SIOBHAN of 05/14/2025. There are no obvious anomalies evident on today's study. However, the fetus is at less than 3rd percentile on the Hadlock scale requiring appropriate follow-up. The placenta is anterior with no evidence of placenta previa. There is a normal amount of amniotic fluid. DATA REPOSITORY:
== END ==
PROVIDERS: Visit Provider Obstetrics & Gynecology
DX: Z34.92 Encounter for supervision of normal pregnancy, unspecified, second trimester (principal)
CPT/HCPCS: 76805

== ENCOUNTER 2024-12-15 10:57 | Outpatient (REF) | payer MEDICAID, SELFPAY ==
[2024-12-15 13:28] LABS: Cannabinoids THC Positive (Negative)
[2024-12-16 12:34] LABS: Fentanyl Scr w/Rfx Confirm Negative ng/mL (<1)
== END 2024-12-15 10:58 | disposition home or self-care (01) ==
LOC: LBN 10:57
PROVIDERS: Advanced Practice Midwife; Visit Provider Advanced Practice Midwife
DX: Z34.91 Encounter for supervision of normal pregnancy, unspecified, first trimester
CPT/HCPCS: 80307; 80348; 87086

== ENCOUNTER → 2025-01-13 00:15 | Outpatient (CLI) | payer MEDICAID, SELFPAY ==
--- NOTE | 2025-01-13 06:15 | DI.US_ITS ---
Exam(s) US OB SUHA WEIGHT EXAM: US OB SUHA WEIGHT CLINICAL HISTORY: growth and SUHA,z34.90,O36.5990. TECHNIQUE: Transabdominal obstetrical ultrasound was performed. COMPARISON: US US OB 2-3 TRIMESTER from 12/15/2024 FINDINGS: There is a single viable intrauterine gestation with cardiac activity identified-155 bpm The fetus is presently in variable position . Amniotic fluid: There is a normal amount of amniotic fluid with an SUHA of 14.72cm. Placental location: The placenta on today's study appears predominately posterior/fundal, grade 1,with no evidence of placenta previa. Dating parameters place this at approximately 23 weeks and 2 days gestational age, implying SIOBHAN of 05/10/2025. BPD measures 23 weeks and 2 days HC measures 23 weeks and 1 day AC measures 24 weeks and 0 days FL measures 22 weeks and 4 days Estimated weight is 589 gm-1 pound 5 ounces Fetus is at the 21st percentile on the Hadlock scale. IMPRESSION:: Viable intrauterine gestation, as described above. On today's study the fetus is at the 21st percentile DATA REPOSITORY:
== END ==
LOC: DI 00:16
PROVIDERS: Visit Provider Advanced Practice Midwife
DX: Z34.92 Encounter for supervision of normal pregnancy, unspecified, second trimester (principal); O36.5920 Maternal care for other known or suspected poor fetal growth, second trimester, not applicable or unspecified
CPT/HCPCS: 76816